=== PATIENT | female | born 1965 | race Caucasian/White ===

== ENCOUNTER 2018-12-08 12:22 | Emergency (ER) | payer BC ==
[2018-12-08 12:38] VITALS: RESP 16
--- NOTE | 2018-12-08 13:29 | ED ---
General Adult HPI - General Source: patient Mode of arrival: wheelchair Limitations: no limitations <Radha Parra - Last Filed: 12/08/18 16:12> <ChalinonicoleBuck Mcnkight - Last Filed: 12/09/18 19:42> - General Chief complaint: Nausea/Vomiting/Diarrhea Stated complaint: Ear pain, not eating Time Seen by Provider: 12/08/18 12:38 - History of Present Illness Initial comments: 53-year-old female presenting today for chief complaint of left ear pain, dizziness and nausea. Patient states a week ago from Monday she was diagnosed with fluid on her ear. She states she had ear pain at this time, and some dizziness. Patient states she is given a steroid. Patient states symptoms persisted Monday she was evaluated by her Physician Dr. Lockwood who gave her a prescription for Keflex and stated that she had swollen aspect of the left ear. Patient states is tender when you place anything inside of the ear. Patient states that the Keflex and to make her nauseous. She called the change medications have her primary care just that she continue the medication she denies any rashes or difficulty breathing denies any lip swelling. Patient states she switched primary provider and was evaluated by Dr. Whitehead, he began patient on amoxicillin and a steroid. Patient states she continues to have dizziness her ear is sore. She states when she moves her head or changes position that is when the dizziness is initiated. She states this makes her nauseous. Patient denies any head injury or trauma denies any visual changes facial changes numbness tingling off sensation of the upper or lower extremities. She states she does have a somewhat unsteady gait secondary to the dizziness. Patient denies any fever chills or night sweats. She states she did have what seemed like a cold just prior to the onset of these symptoms a week and a half ago. Patient denies MARTINEZ or neck stiffness. Patient states that she did have chicken pox as a child. Remaining ROS (-) Upon arrival patient appears well, afebrile, VS WNL. (Radha Parra) - Related Data Home Medications Medication Instructions Recorded Confirmed Cefuroxime Axetil [Ceftin] 500 mg PO BID 01/25/16 01/27/16 Levothyroxine Sodium [Synthroid] 88 mcg PO DAILY 01/25/16 01/27/16 Previous Rx's Medication Instructions Recorded Ondansetron Odt [Zofran Odt] 4 mg PO Q8HR PRN 7 Days #21 tab 12/08/18 valACYclovir HCL [Valacyclovir] 1,000 mg PO Q8H 7 Days #21 tab 12/08/18 Allergies Allergy/AdvReac Type Severity Reaction Status Date / Time No Known Allergies Allergy Verified 12/08/18 12:38 Review of Systems ROS Other: All systems not noted in ROS Statement are negative. <Radha Parra Steve - Last Filed: 12/08/18 16:12> ROS Other: All systems not noted in ROS Statement are negative. <RadhaBuck - Last Filed: 12/09/18 19:42> ROS Statement: Those systems with pertinent positive or pertinent negative responses have been documented in the HPI. Past Medical History Past Medical History: Thyroid Disorder History of Any Multi-Drug Resistant Organisms: None Reported Additional Past Surgical History / Comment(s): COLONOSCOPY,EGD Past Anesthesia/Blood Transfusion Reactions: Motion Sickness Past Psychological History: No Psychological Hx Reported Smoking Status: Never smoker - Past Family History Mother Family Medical History: No Reported History Father Family Medical History: Cancer Additional Family Medical History / Comment(s): LUNG CANCER <Radha Parra Steve - Last Filed: 12/08/18 16:12> General Exam Limitations: no limitations <Radha Parra - Last Filed: 12/08/18 16:12> - General Exam Comments Initial Comments: General: The patient is awake and alert, in no distress, and does not appear acutely ill. Eye: +3 mm pupils are equal, round and reactive to light, extra-ocular movements are intact. No nystagmus. There is normal conjunctiva bilaterally. No signs of icterus. Ears, nose, mouth and throat: There are moist mucous membranes and no oral lesions. Upon insepction of the left ear there is a red tender lesion, no edema, or circumferemtial erythema of the left EAC, normal inspection of TM b/l and right EAC. No pain to palpation of the mastoid. Normal inspection oropharnyx. Neck: The neck is supple, there is no tenderness or JVD. Cardiovascular: There is a regular rate and rhythm. No murmur, rub or gallop is appreciated. Respiratory: Lungs are clear to auscultation, respirations are non-labored, breath sounds are equal. No wheezes, stridor, rales, or rhonchi. Gastrointestinal: Soft, non-distended, non-tender abdomen without masses or organomegaly noted. There is no rebound or guarding present. No CVA tenderness. Bowel sounds are unremarkable. Musculoskeletal: Normal ROM, no tenderness. Strength 5/5. Sensation intact. Radial pulses equal bilaterally 2+. Neurological: A&O x 3. CN II-XII intact, There are no obvious motor or sensory deficits. Coordination appears grossly intact. Speech is normal. No pronator drift. Smooth and coordinated heel to soares and finger to nose. No disconjugate gaze. Smooth EOM. Full strength of the UE and LE equal in comparison b/l. Skin: Skin is warm and dry and no rashes or lesions are noted. Psychiatric: Cooperative, appropriate mood & affect, normal judgment. (Radha Parra) Course Vital Signs 12/08/18 12/08/18 12/08/18 12:36 15:20 15:37 Temperature 98.4 F 98 F Pulse Rate 76 75 Respiratory 16 16 Rate Blood Pressure 127/76 116/69 O2 Sat by Pulse 100 100 Oximetry Medical Decision Making - Lab Data Result diagrams: 12/08/18 13:48 12/08/18 13:48 <Radha Parra - Last Filed: 12/08/18 16:12> - Lab Data Result diagrams: 12/08/18 13:48 12/08/18 13:48 <Buck Garcia - Last Filed: 12/09/18 19:42> - Medical Decision Making 53-year-old female presenting for vertigo, left ear pain. History of erythematous left ear. Patient has been on steroids and multiple antibiotics. On physical examination there is a localized lesion in the left external auditory canal that is very tender to palpation. Patient complains of stabbing ear pain. Patient denies hearing loss. Patient has complaints of vertigo with nausea and occasional vomiting. Patient denies a fever chills night sweats there is no signs of meningeal irritation on examination or focal neurological deficits. Concern for possible zoster of the EAC. Patient given steroids. Patient given RX for varicella and nausea. Patient was evaluated by attending provider Dr. Garcia who examined patient and obtained history agreeable with impression and plan. Patient is to f/u with ENT. Patient is agreeable with plan. Return parameters were discussed at length the patient verbalizes understanding. Patient was discharged appearing well no active emesis in the emergency room. No electrolyte derangements. (Radha Parra) - Lab Data Lab Results 12/08/18 12/08/18 Range/Units 13:48 13:48 WBC 7.2 (3.8-10.6) k/uL RBC 5.27 (3.80-5.40) m/uL Hgb 14.1 (11.4-16.0) gm/dL Hct 40.9 (34.0-46.0) % MCV 77.6 L (80.0-100.0) fL MCH 26.7 (25.0-35.0) pg MCHC 34.4 (31.0-37.0) g/dL RDW 13.6 (11.5-15.5) % Plt Count 306 (150-450) k/uL Neutrophils % 83 % Lymphocytes % 12 % Monocytes % 3 % Eosinophils % 0 % Basophils % 0 % Neutrophils # 6.0 (1.3-7.7) k/uL Lymphocytes # 0.9 L (1.0-4.8) k/uL Monocytes # 0.2 (0-1.0) k/uL Eosinophils # 0.0 (0-0.7) k/uL Basophils # 0.0 (0-0.2) k/uL Sodium 142 (137-145) mmol/L Potassium 4.3 (3.5-5.1) mmol/L Chloride 104 (98-107) mmol/L Carbon Dioxide 25 (22-30) mmol/L Anion Gap 13 mmol/L BUN 17 (7-17) mg/dL Creatinine 0.58 (0.52-1.04) mg/dL Est GFR (CKD-EPI)AfAm >90 (>60 ml/min/1.73 sqM) Est GFR (CKD-EPI)NonAf >90 (>60 ml/min/1.73 sqM) Glucose 97 (74-99) mg/dL Calcium 9.7 (8.4-10.2) mg/dL Total Bilirubin 0.8 (0.2-1.3) mg/dL AST 21 (14-36) U/L ALT 24 (9-52) U/L Alkaline Phosphatase 47 (38-126) U/L Total Protein 7.7 (6.3-8.2) g/dL Albumin 4.8 (3.5-5.0) g/dL Disposition Is patient prescribed a controlled substance at d/c from ED?: No Time of Disposition: 13:32 <Radha Parra Steve - Last Filed: 12/08/18 16:12> <Buck Garcia N - Last Filed: 12/09/18 19:42> Clinical Impression: Lesion of ear, Vertigo, Nausea Disposition: HOME SELF-CARE Condition: Good Instructions (If sedation given, give patient instructions): Shingles (ED), Acute Nausea and Vomiting (ED) Additional Instructions: Please use medication as discussed. Please follow-up with ENT within the next 2-3 days. Please return to emergency room if the symptoms increase or worsen or for any other concerns. Prescriptions: valACYclovir HCL [Valacyclovir] 1,000 mg PO Q8H 7 Days #21 tab Ondansetron Odt [Zofran Odt] 4 mg PO Q8HR PRN 7 Days #21 tab PRN Reason: Nausea Referrals: Lynda Pena DO [Primary Care Provider] - 1-2 days Jose Lea DO [Doctor of Osteopathic Medicine] - 1-2 days
[2018-12-08] MEDS ORDERED: SODIUM CHLORIDE 0.9% 1,000 ML IV ONE (13:35)
[2018-12-08] MEDS ORDERED: ONDANSETRON 4 MG/2 ML VIAL IVP STA (13:36)
[2018-12-08 14:05] LABS: Basophils % (A) 0 %; Eosinophils % (A) 0 %; HCT 40.9 % (34.0-46.0); HGB 14.1 gm/dL (11.4-16.0); Lymphocytes # (A) 0.9 k/uL (1.0-4.8); Lymphocytes % (A) 12 %; MCH 26.7 pg (25.0-35.0); MCHC 34.4 g/dL (31.0-37.0); MCV 77.6 fL (80.0-100.0); Mean Platelet Volume 6.8; Monocytes # (A) 0.2 k/uL (0-1.0); Monocytes % (A) 3 %; Neutrophils % (A) 83 %; Platelet Count 306 k/uL (150-450); RBC 5.27 m/uL (3.80-5.40); RDW 13.6 % (11.5-15.5); WBC 7.2 k/uL (3.8-10.6)
[2018-12-08 14:13] LABS: ALT 24 U/L (9-52); AST 21 U/L (14-36); Albumin 4.8 g/dL (3.5-5.0); Alkaline Phosphatase 47 U/L (38-126); Anion Gap 13 mmol/L; Blood Urea Nitrogen 17 mg/dL (7-17); Calcium 9.7 mg/dL (8.4-10.2); Carbon Dioxide 25 mmol/L (22-30); Chloride 104 mmol/L (98-107); Glucose 97 mg/dL (74-99); Potassium 4.3 mmol/L (3.5-5.1); Sodium 142 mmol/L (137-145); Total Bilirubin 0.8 mg/dL (0.2-1.3); Total Protein 7.7 g/dL (6.3-8.2)
[2018-12-08] MEDS ORDERED: DEXAMETHASONE SOD PHOSPHATE 4 MG/ML 1 ML VIAL IV STA (14:25)
[2018-12-08 15:20] VITALS: BP 116/69; PULSE 75
[2018-12-08 15:40] VITALS: TEMP 98
== END 2018-12-08 15:40 | disposition home or self-care (01) ==
LOC: EC 12:22
DX: H93.92 Unspecified disorder of left ear (principal); R11.0 Nausea; R42 Dizziness and giddiness; E07.9 Disorder of thyroid, unspecified; Z79.890 Hormone replacement therapy
CPT/HCPCS: 36415; 80053; 85025; 99284; 96374; 96375; 96361; J1100; J2405